=== PATIENT | female | born 1945 | race American Indian/Alaskan Native ===

== ENCOUNTER 2016-12-11 22:53 | Emergency (ER) | payer MEDICARE ==
[2016-12-11 23:34] VITALS: BP 150/75
[2016-12-11 23:36] LABS: Eosinophils % (Auto) 0.9 % (0.0-4.3)
[2016-12-11 23:58] LABS: Anion Gap 20 mmol/L; BUN/Creatinine Ratio 33.33; Blood Urea Nitrogen 20 mg/dL (7-17); Calcium 8.8 mg/dL (8.4-10.2); Carbon Dioxide 21 mmol/L (22-30); Chloride 102.1 mmol/L (98-107); Glucose 119 mg/dL (65-100); Potassium 4.4 mmol/L (3.6-5.0); Sodium 139 mmol/L (137-145)
[2016-12-12 00:41] LABS: Basophils % (Auto) 2.5 % (0.0-1.8); Hematocrit 40.3 % (30.3-42.9); Hemoglobin 14.1 gm/dl (10.1-14.3); Mean Corpuscular HGB Conc 35 % (30-34); Mean Corpuscular Hemoglobin 34 pg (28-32); Mean Corpuscular Volume 97 fl (79-97); Platelet Count 182 K/mm3 (140-440); Red Blood Count 4.15 M/mm3 (3.65-5.03); Red Cell Distribution Width 13.8 % (13.2-15.2); White Blood Count 5.7 K/mm3 (4.5-11.0)
--- NOTE | 2016-12-12 13:00 | ED Elopement Review ---
ED Pt Elopement review - Results review Lab results: Laboratory Tests 12/11/16 12/11/16 12/11/16 23:26 23:26 23:26 WBC 5.7 RBC 4.15 Hgb 14.1 Hct 40.3 MCV 97 MCH 34 H MCHC 35 H RDW 13.8 Plt Count 182 Lymph % (Auto) 22.1 [place] % (Auto) 7.8 H Eos % (Auto) 0.9 Baso % (Auto) 2.5 H Lymph # 1.3 [place] # 0.3 Eos # 0.0 Baso # 0.0 Seg Neutrophils % 69.0 Seg Neutrophils # 2.8 Sodium 139 Potassium 4.4 Chloride 102.1 Carbon Dioxide 21 L Anion Gap 20 BUN 20 H Creatinine 0.6 L Estimated GFR > 60 BUN/Creatinine Ratio 33.33 Glucose 119 H Calcium 8.8 Plasma/Serum Alcohol < 0.01 - Call Back decision Pt Call Back Decision: No action required
== END 2016-12-12 02:58 | disposition left against medical advice (07) ==
LOC: ED 22:53
DX: Z00.8 Encounter for other general examination (principal); F41.9 Anxiety disorder, unspecified; F43.10 Post-traumatic stress disorder, unspecified; Z53.21 Procedure and treatment not carried out due to patient leaving prior to being seen by health care provider
CPT/HCPCS: 36415; 80048; 85025; G0480; 80320